=== PATIENT | male | born 1985 | race American Indian/Alaskan Native ===

== ENCOUNTER 2016-11-21 11:32 | Emergency (ER) | payer OTHER ==
[2016-11-21 11:32] VITALS: BMI 25.9
[2016-11-21 11:42] VITALS: BP 136/85; PULSE 71; TEMP 98; O2SAT 99
[2016-11-21] MEDS ORDERED: Lidocaine 1% w Epi 1:100,000 Inj INJ STA (11:56)
[2016-11-21] MEDS ORDERED: Lidocaine 2% w Epi 1:100,000 Inj IJ ONE (12:02)
[2016-11-21] MEDS ORDERED: Bacitracin 500 Units/gm Oint Foilpak UD TOP ONE (12:07)
[2016-11-21] MEDS ORDERED: Bacitracin 500 Units/gm Oint Foilpak UD ONE (12:10)
--- NOTE | 2016-11-21 12:33 | C.PDOC ---
History Of Present Illness 31 y/o male presents to the ED with complaints of wound to left shoulder. Pt had sebaceous cyst removed by Dr Hartman 11/12, feliz removed yesterday. Pt states he went home, and when taking shirt off the wound split open and had moderate bleeding. Pt in ED today for Minnie to evaluate. Time Seen by Provider: 11/21/16 11:43 Chief Complaint (Nursing): Abnormal Skin Integrity History Per: Patient History/Exam Limitations: no limitations Onset/Duration Of Symptoms: Hrs Current Symptoms Are (Timing): Still Present Severity: Mild Recent travel outside of the [place]: No Past Medical History Reviewed: Historical Data, Nursing Documentation, Vital Signs Vital Signs: Last Vital Signs Temp 98.0 F 11/21/16 11:41 Pulse 71 11/21/16 11:41 Resp 18 11/21/16 12:35 BP 136/85 11/21/16 11:41 Pulse Ox 99 11/21/16 12:32 - Medical History PMH: Asthma - [facility] Procedures BONE GRAFT TO PATELLA (02/24/13) CRUCIATE LIG REPAIR NEC (02/24/13) OTHER REPAIR OF KNEE (02/24/13) Family History: States: Unknown Family Hx - Social History Hx Alcohol Use: Yes Hx Substance Use: No - Immunization History Hx Tetanus Toxoid Vaccination: Yes Hx Influenza Vaccination: Yes Hx Pneumococcal Vaccination: Yes Review Of Systems Except As Marked, All Systems Reviewed And Found Negative. Constitutional: Negative for: Fever, Chills Skin: Positive for: Other (wound evaluation of on left shoulder) Physical Exam - Physical Exam Appears: Non-toxic, No Acute Distress Skin: Warm, Dry, No Rash, Other (6cm incision to left shoulder, 2 feliz in the middle, rest of wound dehisced) Head: Atraumatic, Normacephalic Neck: Normal ROM, Supple Extremity: Bilateral: Atraumatic Neurological/Psych: Oriented x3 ED Course And Treatment O2 Sat by Pulse Oximetry: 99 (on room air) Pulse Ox Interpretation: Normal Progress Note: Procedure and procedure note performed by Dr. Hartman. Disposition Discussed With : Mp Hartman Doctor Will See Patient In The: Office - Disposition Referrals: Mp Hartman MD [Staff Provider] - Disposition: HOME/ ROUTINE Disposition Time: 12:31 Condition: STABLE Instructions: Wound Dehiscence (ED) Forms: General Discharge Instructions - POA Present On Arrival: None - Clinical Impression Clinical Impression: Wound dehiscence - Scribe Statement The provider has reviewed the documentation as recorded by the Adrienneibkathi Pang Provider Attestation: All medical record entries made by the Scribe were at my direction and personally dictated by me. I have reviewed the chart and agree that the record accurately reflects my personal performance of the history, physical exam, medical decision making, and the department course for this patient. I have also personally directed, reviewed, and agree with the discharge instructions and disposition.
[2016-11-21 12:36] VITALS: RESP 18
--- NOTE | 2016-11-28 14:42 | CON ---
DATE: 11/21/2016 This is a 31-year-old male status post wide deep excision of a right shoulder mass who presents after a dehiscence of the central portion of the wound. I was notified. I asked to meet him in the Emerg ency Room here at [facility]. PHYSICAL EXAMINATION: There is a slight central dehiscence of the wound . The wound was clean and dry. There was no cellulitis or evidence of infection. Under local anesthesia, a debridement along with an adjacent tissue transfer closure was performed us ing Monocryl and skin clips. The patient tolerated the procedure well and was discharged from the Em ergency Room in stable condition. Mp Hartman MD cc: [id number] TT: 11/28/2016 14:41:17 Confirmation # [id number] Dictation # [id number]
== END 2016-11-21 12:36 | disposition home or self-care (01) ==
LOC: C.ER 11:32
DX: T81.31XA Disruption of external operation (surgical) wound, not elsewhere classified, initial encounter (principal); Y83.8 Other surgical procedures as the cause of abnormal reaction of the patient, or of later complication, without mention of misadventure at the time of the procedure